=== PATIENT | female | born 1980 | race Caucasian/White ===

== ENCOUNTER 2016-08-02 06:46 | Emergency (ER) | payer MEDICAID ==
[~2016-08-02] VITALS: Ht 167.6 cm; Wt 105.7 kg
[~2016-08-02 06:46] MED LIST: ALBUTEROL0.09 MG/A1
[2016-08-02 06:50] VITALS: BP 192/114
[2016-08-02 06:58] VITALS: BP 120/76
--- NOTE | 2016-08-02 07:02 | NUR ---
PT TAKEN TO BED 7
--- NOTE | 2016-08-02 07:06 | NUR ---
Dr. Gonzales evaluating patient at bedside.
[2016-08-02] MEDS ORDERED: BACITRACIN OINT 500 UNITS/GM PKT TP ONE (07:22)
--- NOTE | 2016-08-02 07:30 | NUR ---
TOOK OVER CARE OF PATIENT.
[2016-08-02 07:56] VITALS: BP 120/76
--- NOTE | 2016-08-02 08:00 | NUR ---
Patient discharged with v/s stable. Written and verbal after care instructions given and explained. Patient verbalized understanding. Ambulatory with steady gait. All questions addressed prior to discharge. Advised to follow up with PMD IN 2 DAYS.
== END 2016-08-02 08:00 | disposition home or self-care (01) ==
LOC: MED 06:46
PROC: 2W28X4Z Dressing of Right Upper Extremity using Bandage (ICD-10-PCS; principal; 2016-08-02)
PROC: 3E0134Z Introduction of Serum, Toxoid and Vaccine into Subcutaneous Tissue, Percutaneous Approach (ICD-10-PCS; 2016-08-02)
DX: Z48.00 Encounter for change or removal of nonsurgical wound dressing (principal); T22.211D Burn of second degree of right forearm, subsequent encounter

== ENCOUNTER 2016-09-19 16:46 | Emergency (ER) | payer MEDICAID ==
[~2016-09-19] VITALS: Ht 167.6 cm; Wt 108.9 kg
[2016-09-19 17:07] VITALS: BP 136/60
--- NOTE | 2016-09-19 17:49 | NUR ---
PT TAKEN TO XRAY VIA WHEEL CHAIR BY CONFIGURATION MANAGEMENT SPECIALIST
--- NOTE | 2016-09-19 17:55 | NUR ---
Patient returned from XRAY, transferred to bed 7. RN evaluating patient at bedside.
--- NOTE | 2016-09-19 18:00 | NUR ---
PATIENT PRESENTS TO ED WITH CHEST PAIN X1 DAY. NON RADIATING, HAD N/V ON WEDNESDAY - 4 DAYS AGO, NONE SINCE; DENIES DIARREHA; SKIN IS PINK/WARM/DRY; AAOX4 WITH EVEN AND STEADY GAIT; LUNGS CLEAR BL; HR EVEN AND REGULAR; PT DENIES ANY FEVER, SOB, OR COUGH AT THIS TIME; PATIENT STATES PAIN OF 5/10 AT THIS TIME; VSS; PATIENT POSITIONED FOR COMFORT; HOB ELEVATED; BEDRAILS UP X2; BED DOWN. ER MD MADE AWARE OF PT STATUS.
[2016-09-19 18:45] VITALS: BP 126/76
--- NOTE | 2016-09-19 18:45 | NUR ---
Patient discharged with v/s stable. Written and verbal after care instructions given and explained. Patient alert, oriented and verbalized understanding of instructions. Ambulatory with steady gait. All questions addressed prior to discharge. ID band removed. Patient advised to follow up with PMD. Rx of TRAMADOL, MOTRIN given. Patient educated on indication of medication including possible reaction and side effects. Opportunity to ask questions provided and answered.
== END 2016-09-19 18:45 | disposition home or self-care (01) ==
LOC: MED 16:48
DX: R07.89 Other chest pain (principal); J45.909 Unspecified asthma, uncomplicated

== ENCOUNTER 2017-11-08 14:32 | Emergency (ER) | payer OTHER ==
[~2017-11-08] VITALS: Ht 167.6 cm; Wt 113.1 kg
[2017-11-08 14:37] VITALS: BP 162/80
--- NOTE | 2017-11-08 14:40 | NUR ---
PT AMBULATES TO CHAIR A
--- NOTE | 2017-11-08 14:55 | NUR ---
ER AT BEDSIDE FOR EVAL
--- NOTE | 2017-11-08 15:00 | NUR ---
PATIENT PRESENTS TO ED WITH C/O COUGH, MCKEON, SORE THROAT, NAUSEA, DIZZINESS X 6 DAYS;SKIN IS PINK/WARM/DRY; AAOX4 WITH EVEN AND STEADY GAIT; LUNGS CLEAR BL; HR EVEN AND REGULAR; PATIENT STATES PAIN OF 6/10 AT THIS TIME; PATIENT POSITIONED FOR COMFORT; HOB ELEVATED; BEDRAILS UP X2; BED DOWN. ER MD MADE AWARE OF PT STATUS.
[2017-11-08 15:37] VITALS: BP 147/65
--- NOTE | 2017-11-08 15:37 | NUR ---
Patient discharged with v/s stable. Written and verbal after care instructions given and explained. Patient alert, oriented and verbalized understanding of instructions. Ambulatory with steady gait. All questions addressed prior to discharge. ID band removed. Patient advised to follow up with PMD. Rx of PREDNISONE, TESSALON PERLEES AND ALBUTEROL given. Patient educated on indication of medication including possible reaction and side effects. Opportunity to ask questions provided and answered.
== END 2017-11-08 15:37 | disposition home or self-care (01) ==
LOC: MED 14:32
DX: B34.9 Viral infection, unspecified (principal); J98.01 Acute bronchospasm; I10 Essential (primary) hypertension; Z90.49 Acquired absence of other specified parts of digestive tract
CPT/HCPCS: 71046; 99284

== ENCOUNTER 2019-03-16 08:08 | Emergency (ER) | payer SELFPAY ==
[~2019-03-16] VITALS: Ht 167.6 cm; Wt 113.4 kg
[2019-03-16 08:13] VITALS: BP 122/62
--- NOTE | 2019-03-16 08:31 | NUR ---
PT PRESENTS TO ED WITH C/O SORETHROAT. REPORTS DIFFICULTY BREATHING. DENIES N/V/D OR FEVER. VSS. ERMD TO EVALUATE PT.
--- NOTE | 2019-03-16 08:31 | NUR ---
O2 SAT 97% ON RA. RESP EVEN AND UNLABORED.
--- NOTE | 2019-03-16 08:36 | NUR ---
DR NIX EVALUATING PT AT BEDSIDE.
--- NOTE | 2019-03-16 08:45 | NUR ---
STREP A-SCREEN DONE;LAB INFORMED.
--- NOTE | 2019-03-16 09:10 | NUR ---
Patient appears to be resting comfortably in bed. Vital Signs within normal limits. Respirations even and unlabored.
[2019-03-16] MEDS ORDERED: DEXAMETHASONE 10 MG/ML VIAL IM ONE (09:25)
[2019-03-16] MEDS ORDERED: KETOROLAC 30 MG/ML VIAL IM ONE (09:25)
--- NOTE | 2019-03-16 09:45 | NUR ---
MEDICATION ADMINISTERED ORDERED.
--- NOTE | 2019-03-16 09:48 | NUR ---
SPOKE WITH JASMYN FROM LAB; STREP A ANTIGEN SCREEN IS NEGATIVE. DR NIX INFORMED.
--- NOTE | 2019-03-16 10:06 | NUR ---
ePatient discharged with v/s stable. Written and verbal after care instructions given and explained. Patient verbalized understanding. Ambulatory with steady gait. All questions addressed prior to discharge. Advised to follow up with PMD.
[2019-03-16 10:13] VITALS: BP 117/70
== END 2019-03-16 10:06 | disposition home or self-care (01) ==
LOC: MED 08:08
DX: J02.9 Acute pharyngitis, unspecified (principal)
CPT/HCPCS: 81025; 87081; 96372; 99283; J1100; J1885

== ENCOUNTER 2019-07-26 14:10 | Emergency (ER) | payer SELFPAY ==
[~2019-07-26] VITALS: Ht 154.9 cm; Wt 113.9 kg
[2019-07-26 14:28] VITALS: BP 177/91
--- NOTE | 2019-07-26 14:33 | NUR ---
PT TO ER LOBBY, ALERT AND AWAKE
--- NOTE | 2019-07-26 14:46 | NUR ---
URINE COLLECTED AND PLACED FOR LAB PICKUP
--- NOTE | 2019-07-26 14:55 | NUR ---
PT AMBULATED TO CHAIR B.
[2019-07-26 14:58] LABS: APPEARANCE,URINE CLEAR (CLEAR); BILIRUBIN,URINE NEGATIVE (NEGATIVE); BLOOD, URINE NEGATIVE (NEGATIVE); COLOR,URINE YELLOW (YELLOW); LEUKOCYTE ESTERASE ,URINE NEGATIVE (NEGATIVE); NITRITE, URINE NEGATIVE (NEGATIVE); PH,URINE 6.5 (5.0-9.0); UGLUCOSE NEGATIVE (NEGATIVE)
--- NOTE | 2019-07-26 15:15 | NUR ---
THUY FLANNERY EVALUATING PT
--- NOTE | 2019-07-26 15:16 | NUR ---
38/F C/O RUQ PAIN AND RT FLANK PAIN X 2 WEEKS. DENIES DYSURIA, HEMATURIA, N/V/D. STATES FEELS "LIKE I AM GETTING A FEVER BUT THEN IT GOES AWAY". PAIN INTERMITTENT, 2/10 AT THIS TIME. NAD AT THIS TIME. PMH-CHOLECYSTECTOMY
[2019-07-26] MEDS ORDERED: KETOROLAC 30 MG/ML VIAL IM ONE (15:25)
[2019-07-26 16:34] VITALS: BP 155/82
== END 2019-07-26 15:45 | disposition home or self-care (01) ==
LOC: MED 14:10
DX: S39.012A Strain of muscle, fascia and tendon of lower back, initial encounter (principal); F12.10 Cannabis abuse, uncomplicated; Z90.49 Acquired absence of other specified parts of digestive tract; X58.XXXA Exposure to other specified factors, initial encounter; Y93.89 Activity, other specified; Y92.89 Other specified places as the place of occurrence of the external cause; Y99.8 Other external cause status
CPT/HCPCS: 81003; 81025; 96372; 99283; J1885

== ENCOUNTER 2021-04-24 10:21 | Emergency (ER) | payer OTHER ==
[~2021-04-24] VITALS: Ht 167.6 cm; Wt 111.1 kg
[2021-04-24 10:36] VITALS: BP 167/145
--- NOTE | 2021-04-24 10:41 | NUR ---
PT TAKEN TO ER BED 10.
--- NOTE | 2021-04-24 10:43 | NUR ---
40 Y/O FEMALE SENT BY SURGEON FOR WOUND CHECK. VAGINAL SLING SURGERY PERFORMED, TISSUE REMOVED FROM RIGHT THIGH, TODAY PUS NOTED WITH SOME DISCHARGE WITH SURGICAL SITE NOT INTACT. DENIES N/V, DENIES FEVER/CHILLS, DENIES PAIN. PMH: PRE-DM NKA
--- NOTE | 2021-04-24 11:36 | NUR ---
DR. BROWN AT PT BEDSIDE FOR FURTHER EVALUATION.
[2021-04-24 11:50] VITALS: BP 154/98
--- NOTE | 2021-04-24 11:52 | NUR ---
Patient discharged with v/s stable. Written and verbal after care instructions given and explained. Patient verbalized understanding. Ambulatory with steady gait. All questions addressed prior to discharge. Advised to follow up with PMD.
== END 2021-04-24 11:52 | disposition home or self-care (01) ==
LOC: MED 10:21
DX: T81.30XA Disruption of wound, unspecified, initial encounter (principal); Z90.49 Acquired absence of other specified parts of digestive tract; Z98.890 Other specified postprocedural states
CPT/HCPCS: 99281

== ENCOUNTER 2023-12-01 08:59 | Observation (INO) | payer OTHER ==
[2023-12-01] VITALS (8 sets, daily range): BP systolic 136; BP diastolic 50; PULSE 104; RESP 20; TEMP 98; O2SAT 97–100
[~2023-12-01] VITALS: Ht 167.6 cm; Wt 60.9 kg
[2023-12-01 09:45] LABS: BILIRUBIN,URINE 1+ (NEGATIVE); BLOOD, URINE 3+ (NEGATIVE); COLOR,URINE YELLOW (YELLOW); LEUKOCYTE ESTERASE ,URINE TRACE (NEGATIVE); NITRITE, URINE NEGATIVE (NEGATIVE); PROTEIN,URINE TRACE (NEGATIVE); UGLUCOSE NEGATIVE (NEGATIVE)
[2023-12-01] MEDS: NACL 0.9% 1,000 ML IV ONE (09:48)
[2023-12-01 10:02] LABS: APPEARANCE,URINE HAZY (CLEAR); BACTERIA,URINE FEW /HPF (None Seen); ICTOTEST NEGATIVE (NEGATIVE); RBC,URINE 20-50 /HPF (0-5); WBC,URINE 0-5 /HPF (0-5)
[2023-12-01 10:03] LABS: SQUAMOUS EPITHELIAL CELL,UR 4-10 (MOD) /LPF (0-3 (FEW))
[2023-12-01 10:20] LABS: BASOPHILS % (AUTO) 0.6 % (0.0-2.0); EOSINOPHILS # (AUTO) 0.1 K/uL (0-0.4); EOSINOPHILS % (AUTO) 2.2 % (0.0-4.0); LYMPHOCYTES # (AUTO) 1.1 K/uL (2.5-16.5); MEAN CORPUSCULAR HEMOGLOBIN 17 pg (27-31); MEAN CORPUSCULAR HGB CONC 30 g/dL (33-37); MEAN CORPUSCULAR VOLUME 57.7 fL (80-94); MONOCYTES # (AUTO) 0.5 K/uL (0.8-1.0); MONOCYTES % (AUTO) 9.1 % (1.7-9.3); NEUTROPHILS # (AUTO) 4.2 K/uL (1.8-7.7); NEUTROPHILS % (AUTO) 70.1 % (42.2-75.2); PLATELET COUNT (AUTO) 393 K/uL (140-450); RED BLOOD CELL COUNT(AUTO) 2.94 MIL/uL (4.20-5.40); RED CELL DISTRIBUTION WIDTH 18.9 % (11.6-13.7); WHITE BLOOD COUNT (AUTO) 5.9 K/uL (4.8-10.8)
[2023-12-01] MEDS: KETOROLAC 30 MG/ML VIAL IVP ONE (10:33)
[2023-12-01 10:52] LABS: ANION GAP 12.7 (8-16); CALCIUM 8.4 mg/dL (8.5-10.1); CARBON DIOXIDE 24.1 mmol/L (21-32); CREATININE 0.8 mg/dL (0.6-1.3); POTASSIUM 3.8 mmol/L (3.5-5.1)
[2023-12-01] MEDS ORDERED: HYDROcodone/APAP 5/325 MG 1 TAB TAB PO PRN (12:30)
[2023-12-01] MEDS ORDERED: MORPHINE SULFATE 2 MG/ML SYR IVP PRN (12:30)
[2023-12-01] MEDS ORDERED: POTASSIUM CHLORIDE 10 MEQ TABER PO PRN (12:30)
[2023-12-01] MEDS ORDERED: MAG SULF 2000 MG/WATER PREMIX 50 ML IV PRN (12:30)
[2023-12-01] MEDS ORDERED: ACETAMINOPHEN 325 MG TAB PO PRN (12:30)
[2023-12-01] MEDS ORDERED: KCL 20 MEQ IN 100 mL PREMIX 200 ML IV PRN (12:30)
[2023-12-01] MEDS ORDERED: MAGNESIUM OXIDE 400 MG TAB PO PRN (12:30)
[2023-12-01] MEDS ORDERED: ONDANSETRON 4 MG ODT SL PRN (15:35)
[2023-12-01] MEDS: ONDANSETRON 4 MG ODT SL PRN (15:50)
[2023-12-01] MEDS ORDERED: KETOROLAC 30 MG/ML VIAL IVP PRN ×2 (18:10)
[2023-12-01 18:31] LABS: BASOPHILS % (AUTO) 0.7 % (0.0-2.0); EOSINOPHILS # (AUTO) 0.2 K/uL (0-0.4); EOSINOPHILS % (AUTO) 2.9 % (0.0-4.0); HEMATOCRIT 20.3 % (36-48); LYMPHOCYTES # (AUTO) 1.6 K/uL (2.5-16.5); LYMPHOCYTES % (AUTO) 22.5 % (20.5-51.1); MEAN CORPUSCULAR HEMOGLOBIN 19 pg (27-31); MEAN CORPUSCULAR HGB CONC 31 g/dL (33-37); MEAN CORPUSCULAR VOLUME 60.6 fL (80-94); MONOCYTES # (AUTO) 0.6 K/uL (0.8-1.0); MONOCYTES % (AUTO) 8.3 % (1.7-9.3); NEUTROPHILS # (AUTO) 4.7 K/uL (1.8-7.7); NEUTROPHILS % (AUTO) 65.6 % (42.2-75.2); PLATELET COUNT (AUTO) 392 K/uL (140-450); RED BLOOD CELL COUNT(AUTO) 3.36 MIL/uL (4.20-5.40); RED CELL DISTRIBUTION WIDTH 22.1 % (11.6-13.7); WHITE BLOOD COUNT (AUTO) 7.2 K/uL (4.8-10.8)
[2023-12-01 18:33] LABS: HEMOGLOBIN 6.3 g/dL (12.0-16.0)
[2023-12-02] VITALS (7 sets, daily range): BP systolic 107–123; BP diastolic 37–63; PULSE 70–100; RESP 18; TEMP 97.3–98.7; O2SAT 94–100
[2023-12-02 07:09] LABS: ALBUMIN 3.3 g/dL (3.4-5.0); ANION GAP 14.4 (8-16); CALCIUM 8.4 mg/dL (8.5-10.1); CARBON DIOXIDE 22.6 mmol/L (21-32); CREATININE 0.7 mg/dL (0.6-1.3); MAGNESIUM 2.1 mg/dL (1.8-2.4); TOTAL BILIRUBIN 0.5 mg/dL (0.0-1.0); TOTAL PROTEIN, SERUM 6.9 g/dL (6.4-8.2)
[2023-12-02 07:43] LABS: BASOPHILS % (AUTO) 0.5 % (0.0-2.0); EOSINOPHILS # (AUTO) 0.2 K/uL (0-0.4); EOSINOPHILS % (AUTO) 2.7 % (0.0-4.0); HEMATOCRIT 20.5 % (36-48); LYMPHOCYTES # (AUTO) 1.6 K/uL (2.5-16.5); LYMPHOCYTES % (AUTO) 24.5 % (20.5-51.1); MEAN CORPUSCULAR HEMOGLOBIN 20 pg (27-31); MEAN CORPUSCULAR HGB CONC 31 g/dL (33-37); MEAN CORPUSCULAR VOLUME 63.3 fL (80-94); MONOCYTES # (AUTO) 0.6 K/uL (0.8-1.0); MONOCYTES % (AUTO) 9.5 % (1.7-9.3); NEUTROPHILS # (AUTO) 4.1 K/uL (1.8-7.7); NEUTROPHILS % (AUTO) 62.8 % (42.2-75.2); PLATELET COUNT (AUTO) 353 K/uL (140-450); RED BLOOD CELL COUNT(AUTO) 3.24 MIL/uL (4.20-5.40); RED CELL DISTRIBUTION WIDTH 24.4 % (11.6-13.7); WHITE BLOOD COUNT (AUTO) 6.5 K/uL (4.8-10.8)
[2023-12-02 07:46] LABS: HEMOGLOBIN 6.4 g/dL (12.0-16.0)
[2023-12-02] MEDS: medroxyPROGESTERone 10 MG TAB PO SCH (08:57)
[2023-12-02 16:28] LABS: HEMOGLOBIN 7.5 g/dL (12.0-16.0)
[2023-12-02 16:31] LABS: HEMATOCRIT 24.2 % (36-48)
== END 2023-12-02 17:45 | disposition home or self-care (01) ==
LOC: MED 08:59 → MTU 12:37
PROVIDERS: ADMIT Internal Medicine; ATTEND Internal Medicine
DX: N93.9 Abnormal uterine and vaginal bleeding, unspecified (principal); D62 Acute posthemorrhagic anemia; D25.9 Leiomyoma of uterus, unspecified; N92.0 Excessive and frequent menstruation with regular cycle; E66.01 Morbid (severe) obesity due to excess calories; I10 Essential (primary) hypertension; E78.5 Hyperlipidemia, unspecified; G43.909 Migraine, unspecified, not intractable, without status migrainosus; Z79.899 Other long term (current) drug therapy
CPT/HCPCS: 36415; 36430; 71045; 74150; 76856; 80048; 80053; 81001; 83735; 85018; 85025; 86886; 86900; 86901; 86920; 87081; 93005; 96361; 96374; 99285; G0378; J1885; P9016; Q0092; Q0162